=== PATIENT | female | born 1945 | race Caucasian/White ===

== ENCOUNTER 2022-12-03 09:14 | Emergency (ER) | payer MEDICARE, SELFPAY ==
--- NOTE | 2022-12-03 09:17 | ED.EYEPROB ---
HPI - Eye Problem General Chief complaint: Eye Problems Stated complaint: Eyes are red & swollen Time Seen by Provider: 12/03/22 09:16 Source: patient Mode of arrival: ambulatory Limitations: no limitations History of Present Illness HPI Narrative: Kori is a 77-year-old female patient presenting to the clinic today with complaints of eyes red and swollen x1 day. 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 States she did mow the lawn yesterday. Reports that she woke up last night multiple times with her eyes matted shut. Has redness and swelling to the lower orbits. No fever or chills. Does have yellow mucopurulent discharge coming from the eyes. Related Data Allergies Allergy/AdvReac Type Severity Reaction Status Date / Time lisinopril Allergy Mild Cough Verified 12/03/22 09:39 metformin AdvReac Mild Diarrhea Verified 12/03/22 09:39 Review of Systems Review of Systems: Pertinent positives per HPI. Patient denies any fever, chills, rash, headache, visual changes, dizziness, cough, runny nose, sore throat, shortness of breath, chest pain, palpitations, nausea, vomiting, diarrhea, constipation, abdominal pain, or any urinary issues. PMFSH Comments At the time of my signature, I reviewed and agree with the nursing past medical, surgical, social, and family history. There is no relevant family history pertinent to the patient complaint. Exam Narrative: General: Well-developed, well nourished, in no apparent distress Head: Normocephalic, atraumatic Eyes: Pupils equally round and reactive to light bilaterally, EOM intact, sclera and conjunctive injected, yellow mucopurulent discharge discharge, bilateral lid swelling with redness and erythema to the bilateral lower orbits Ears: TMs intact and clear, ear canals clear, no drainage, grossly hearing normal. Nose: Nares patent, no discharge, no inflammation, no sinus tenderness. Mouth: Oropharynx without lesions or masses, good dentition, MMM. Neck: Supple, trachea midline, no enlargement of anterior or posterior cervical nodes, no thyroid masses or goiter palpable. Cardio: Regular rate and rhythm, s1 and s2 normal, no murmur appreciated. Resp: Clear to auscultation bilaterally anteriorly and posteriorly, no rhonchi, rales, wheezing or rubs Course Course Emergency Course: Portions of this record may have been created with voice recognition software. Level of Care: Express Care Visit Vital Signs Vital signs: Vital signs reviewed MDM - Eye Problem MDM Narrative Medical decision making narrative: At the time of visit patient is resting comfortably on the exam table. Visual acuity was obtained and within normal limits with corrected eye wear. I suspect patient has periorbital cellulitis/conjunctivitis. Will place patient on Augmentin and clindamycin per up-to-date recommendations as well as giving her a 1 g Rocephin injection in the clinic today. Will also place her on tobramycin eyedrops. Supportive measures were discussed with the patient she voiced understanding discharge instructions agrees to treatment plan Differential Diagnosis Differential diagnosis: Likely corneal abrasion, conjunctivitis, acute iritis, periorbital cellulitis, subconjunctival hemorrhage, corneal ulcer and ruptured globe Discharge Plan Discharge Clinical Impression: Cellulitis of periorbital region of both eyes Conjunctivitis Qualifiers: Conjunctivitis type: acute Acute conjunctivitis type: bacterial Laterality: bilateral Qualified Code(s): H10.33 - Unspecified acute conjunctivitis, bilateral Patient Disposition: Home, Self-Care Condition: Stable Instructions: Antibiotic Form, Orbital Cellulitis (ED), Conjunctivitis (ED) Additional Instructions: Conjunctivitis is considered contagious for 24 hours while on the antibiotic. Rocephin 1 g IM given in the clinic today Take medications as prescribed-clindamycin and Augmentin May want to take a daily probiotic-
[2022-12-03 09:26] VITALS: BP 140/65; PULSE 79; RESP 16; TEMP 37.2; O2SAT 99
[2022-12-03] MEDS: cefTRIAXone 1 GM, LIDOCAINE HCL 1% LOCAL INJ 2.1 ML IM (09:56)
== END 2022-12-03 10:05 | disposition home or self-care (01) ==
LOC: EXPCOLL 09:20
PROVIDERS: Emergency Provider Nurse Practitioner Family; PCP Family Medicine
DX: L03.213 Periorbital cellulitis (principal); H10.33 Unspecified acute conjunctivitis, bilateral; E78.00 Pure hypercholesterolemia, unspecified; I10 Essential (primary) hypertension; E11.9 Type 2 diabetes mellitus without complications
CPT/HCPCS: 96372; 99213; G0463; J0696

== ENCOUNTER 2024-03-28 12:57 | Emergency (ER) | payer MEDICARE, SELFPAY ==
--- NOTE | ~2024-03-28 | XR_ITS ---
XR shoulder LT min 2V 03/28/2024 14:16 Indication: Left shoulder pain after injury Procedure: 3 views left shoulder Comparison: No prior studies for comparison. Findings: There is a comminuted mildly displaced and angulated left humeral fracture just below the h umeral neck. 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 No significant abnormality of the visualized chest. Impression: 1: Comminuted, displaced and angulated proximal humeral fracture. Reviewed, dictated and finalized at location B. Impression: 1: Comminuted, displaced and angulated proximal humeral fracture.
[2024-03-28 13:00] VITALS: BP 126/103; PULSE 75; RESP 20; TEMP 36.6; O2SAT 100
[2024-03-28 13:16] VITALS: BP 146/56; PULSE 80; RESP 18; O2SAT 100
[2024-03-28 13:31] VITALS: BP 159/76; PULSE 76; RESP 18; O2SAT 98
[2024-03-28] MEDS: MORPHINE SULFATE (*CRX) 2 MG/ML INJ IV PUSH (13:51)
[2024-03-28] MEDS: ONDANSETRON INJ 4 MG/2 ML VIAL IV PUSH (13:51)
--- NOTE | 2024-03-28 16:28 | PC.NURSE ---
pt states she is missing her belongings. pt brought in by EMS. This RN spoke with the EMS team about her missing items. State they will check for them.
[2024-03-28 16:59] LABS: Basophils Percent Auto 0.3 % (0.2-1.2); Eosinophils Absolute Auto 0.1 K/mm3 (0-0.3); Eosinophils Percent Auto 0.8 % (0-4.4); Hematocrit 32.8 % (37.0-47.0); Hemoglobin 10.9 g/dL (12.0-15.0); Immature Granulocyte Absolute 0.03 K/mm3 (0.00-0.031); Immature Granulocyte Percent A 0.4 % (0-0.5); Immature Platelet Fraction Pct 5.5 % (0.9-11.2); Lymphocytes Absolute Auto 0.52 K/mm3 (0.9-3.2); Lymphocytes Percent Auto 6.6 % (18.3-44.2); Mean Corpuscular HGB Conc 33.2 g/dl (32-36); Mean Corpuscular Hemoglobin 32.9 pg (26-34); Mean Corpuscular Volume 99.1 fl (80-100); Monocytes Absolute Auto 0.4 K/mm3 (0.1-0.6); Monocytes Percent Auto 4.5 % (2.6-8.5); Neutrophils Absolute Auto 6.8 K/mm3 (1.3-6.7); Neutrophils Percent Auto 87.4 % (45.5-73.1); Red Blood Count 3.31 M/mm3 (4.2-5.4); Red Cell Distribution Width 13.4 % (11.5-14.5); White Blood Count 7.8 K/mm3 (4.5-10.0)
--- NOTE | 2024-03-28 17:05 | ED.FALL ---
HPI - Fall General Chief Complaint: Fall Stated Complaint: L shoulder pain, fall Time Seen by Provider: 03/28/24 13:27 Source: patient Mode of arrival: ambulatory Limitations: no limitations History of Present Illness HPI Narrative: 78-year-old otherwise healthy here with the complaints of left shoulder pain. Patient states that she was in a cassidy to use the restroom missed a step and fell on her left shoulder. She denied any head and neck injuries. She states that she is unable to move the shoulder. MD complaint: fall Onset (ago): hour(s) (1) Fall from: down stairs (#) (1) Fall witnessed: no Place fall occurred: home Loss of consciousness: none Prolonged down time: no Context: tripped/slipped Location of injury: other Location of injury - extremities: Left: shoulder Related Data Home Medications Medication Instructions Recorded Confirmed atorvastatin 40 mg tablet 40 mg PO DAILY 12/03/22 12/03/22 carvedilol 25 mg tablet 25 mg PO DAILY 12/03/22 12/03/22 dulaglutide 3 mg/0.5 mL 3 mg subcut WEEKLY 12/03/22 12/03/22 subcutaneous pen injector (Trulicity) insulin glargine 100 unit/mL (3 18 unit subcut DAILY 12/03/22 12/03/22 mL) subcutaneous pen (Lantus Solostar U-100 Insulin) insulin lispro 100 unit/mL 8 unit subcut BID 12/03/22 12/03/22 subcutaneous pen (Humalog KwikPen (U-100) Insulin) losartan 100 mg tablet 100 mg PO DAILY 12/03/22 12/03/22 Allergies Allergy/AdvReac Type Severity Reaction Status Date / Time lisinopril Allergy Mild Cough Verified 03/28/24 13:42 metformin AdvReac Mild Diarrhea Verified 03/28/24 13:42 Exam Narrative: GENERAL: Well-appearing, well-nourished, and in no acute distress. HEAD: Normocephalic, atraumatic. EYES: PERRLA and EOMI. ENT: Nares clear, NECK: Supple. CHEST: Clear to auscultation. No respiratory distress. HEART: Regular rate and rhythm. No murmur heard. Normal peripheral pulses. EXTREMITIES: Normal range of motion. No edema. examination of the left shoulder marked tenderness on palpation and movement SKIN: Warm, dry, no rash. NEURO: No focal deficits. Alert and oriented x3. PSYCH: Normal mood and affect. Course Course Emergency Course: Pain is much improved after IV morphine , informed her about the x-ray findings. I discussed with recommended to transfer to trauma surgery , pt was not too happy about transfer . Discussed with Dr. Dowling accepted the pt. Vital Signs Vital signs: Vital Signs Temperature 36.6 C 03/28/24 13:00 Pulse Rate 75 03/28/24 13:00 Respiratory Rate 20 03/28/24 13:00 Blood Pressure 126/103 H 03/28/24 13:00 Pulse Oximetry 100 03/28/24 13:00 Oxygen Delivery Room Air 03/28/24 13:00 Temperature 36.6 C 03/28/24 13:00 Pulse Rate 75 03/28/24 13:00 Respiratory Rate 20 03/28/24 13:00 Blood Pressure 126/103 H 03/28/24 13:00 Pulse Oximetry 100 03/28/24 13:00 Oxygen Delivery Room Air 03/28/24 13:00 MDM - Fall MDM Narrative Medical decision making narrative: 78-year-old here with complaints of left shoulder pain after mechanical fall. She denied any head and neck injury no LOC obtain x-ray of her left shoulder control appeared with IV morphine. Differential Diagnosis Differential diagnosis: Likely dislocation of shoulder region and other (Fracture humerus) Medical Records Attestation: I reviewed the patient's medical records. Lab Data 03/28/24 16:52 03/28/24 16:52 Labs: Lab Results 03/28/24 03/28/24 Range/Units 16:52 17:20 WBC 7.8 (4.5-10.0) K/mm3 RBC 3.31 L (4.2-5.4) M/mm3 Hgb 10.9 L (12.0-15.0) g/dL Hct 32.8 L (37.0-47.0) % MCV 99.1 (80-100) fl MCH 32.9 (26-34) pg MCHC 33.2 (32-36) g/dl RDW 13.4 (11.5-14.5) % Plt Count TNP MPV TNP Immature Gran % (Auto) 0.4 (0-0.5) % Neut % (Auto) 87.4 H (45.5-73.1) % Lymph % (Auto) 6.6 L (18.3-44.2) % [place] % (Auto) 4.5 (2.6-8.5) % Eos %
[2024-03-28 17:07] LABS: Alanine Aminotransferase 26 U/L (6-35); Albumin Level 3.5 g/dL (3.5-5.1); Alkaline Phosphatase 56 U/L (38-126); Anion Gap 8 mmol/L (4-12); Aspartate Amino Transferase 28 U/L (14-36); Bilirubin,Total 0.5 mg/dL (0.2-1.3); Blood Urea Nitrogen 30 mg/dL (7-17); Calcium 8.8 mg/dL (8.4-10.2); Carbon Dioxide 26 mmol/L (22-30); Chloride 105 mmol/L (98-107); Estimated CRCL calculation 44 ml/min; Estimated Glomerular Filt Rate 40; Glucose 130 mg/dL (65-110); Sodium 139 mmol/L (137-145)
[2024-03-28 17:12] LABS: Prothrombin Time 13.4 Seconds (11.1-14.7)
[2024-03-28 17:22] LABS: Glucose Point of Care 118 mg/dl (65-105)
[2024-03-28 17:43] VITALS: BP 181/81; PULSE 77; RESP 20; O2SAT 98
[2024-03-28 17:46] VITALS: BP 183/73; PULSE 74; RESP 18; O2SAT 99
== END 2024-03-28 19:09 | disposition short-term general hospital (02) ==
PROVIDERS: Emergency Provider Family Medicine; PCP Family Medicine
DX: S42.202A Unspecified fracture of upper end of left humerus, initial encounter for closed fracture (principal); W01.0XXA Fall on same level from slipping, tripping and stumbling without subsequent striking against object, initial encounter; E11.9 Type 2 diabetes mellitus without complications; Z79.4 Long term (current) use of insulin
CPT/HCPCS: 36415; 73030; 80053; 82948; 85025; 85055; 85610; 96374; 96375; 99285; J2270; J2405

== ENCOUNTER 2025-03-14 11:06 | Emergency (ER) | payer MEDICARE, SELFPAY ==
--- NOTE | ~2025-03-14 | XR_ITS ---
EXAMINATION: XR hip LT min 2V DATE: 03/14/2025 11:48 INDICATION: Left hip pain post fall 2 weeks prior TECHNIQUE: Anteroposterior and frog-leg lateral views of the left hip were obtained. COMPARISON: None. FINDINGS: Bone alignment is normal. No fracture or osteonecrosis. Mild left hip osteoarthritis. Moderate osteoarthritis of the sacroiliac joints. Mild vascular calcifications. IMPRESSION: 1. Mild left hip and moderate bilateral sacroiliac osteoarthritis. No acute osseous abnormality. Reviewed, dictated and finalized at location A. IMPRESSION: 1. Mild left hip and moderate bilateral sacroiliac osteoarthritis. No acute oss eous abnormality.
--- NOTE | ~2025-03-14 | XR_ITS ---
EXAMINATION: XR lumbar spine 2-3V DATE: 03/14/2025 11:49 INDICATION: Bilateral low back pain 2 weeks post fall TECHNIQUE: Anteroposterior and lateral views of the lumbar spine, and cone-down lateral view of the lumbosacral junction were obtained. COMPARISON: None. FINDINGS: 3 mm retrolisthesis L2 on L3. Age-indeterminate inferior endplate compression fracture at L2 with 20% anterior vertebral body height loss minimal likely physiologic anterior wedging at T11 and T12. And moderate to severe disc height loss at L2-L3 and L5-S1, moderate disc height loss at L3-L4, mild to moderate disc height loss at L4-L5 and mild disc height loss at T10-T11 through L1-L2. Severe facet osteoarthritis at L4-L5 and L5-S1 with mild to moderate facet osteoarthritis and more cephalad lumbar spine. Atherosclerotic calcifications along the abdominal aorta, splenic and bilateral iliac arteries. Sacral arches are intact. Mild to moderate bilateral sacroiliac osteoarthritis and mild bilateral hip osteoarthritis. IMPRESSION: 1. Age-indeterminate, potentially acute or subacute L2 inferior endplate compression fracture. 2. Moderate to severe lower lumbar predominant spondylosis. Reviewed, dictated and finalized at location A. IMPRESSION: 1. Age-indeterminate, potentially acute or subacute L2 inferior endplate compre ssion fracture. 2. Moderate to severe lower lumbar predominant spondylosis.
--- NOTE | 2025-03-14 11:11 | ED_ITS ---
HPI - Back Pain/Injury General Chief Complaint: Back Pain/Injury Stated Complaint: back/leg pain Time Seen by Provider: 03/14/25 11:07 Source: patient Mode of arrival: ambulatory Limitations: no limitations History of Present Illness HPI Narrative: Patient is a 79-year-old female who presents with 2 weeks of low back pain with pain radiating down the left leg. Patient states she was bent down pulling weeds and fell over to her side. Reports pain was very minor initially but has worsened over time. Reports pain does chew from her back all the way down to her left foot. Denies any weakness, numbness or tingling. Patient goes to a chiropractor and he is requesting images, had similar issues starting in November and has been seeing him twice a week since. Patient was doing better prior to fall and was on a maintenance program. Patient does have diabetes and called her health information technologist. States he informed her that she could take a short course of steroids and monitor sugars closely. Patient denies any bowel or bladder incontinence. Related Data Home Medications ?Medication ?Instructions ?Recorded ?Confirmed ?Last Taken ?Type atorvastatin 40 mg tablet 40 mg PO DAILY 12/03/2211/13 Unknown History carvedilol 25 mg tablet 25 mg PO DAILY 12/03/2211/13 Unknown History dulaglutide 3 mg/0.5 mL 3 mg subcut WEEKLY 12/03/22 12/03/22 Unknown History subcutaneous pen injector (Trulicity) losartan 100 mg tablet 100 mg PO DAILY 12/03/22 Unknown History allopurinol 300 mg tablet mg 03/14/25 Unknown History glipizide 10 mg tablet mg 03/14/25 Unknown History insulin aspart U-100 100 unit/mL subcut 03/14/25 Unkn own History (3 mL) subcutaneous pen (Novolog FlexPen U-100 Insulin aspart) Allergies Allergy/AdvReac Type Severity Reaction Status Date / Time lisinopril Allergy Mild Cough Verified 03/14/25 11:08 metformin AdvReac Mild Diarrhea Verified 03/14/25 11:08 Review of Systems Review of Systems: All systems reviewed & are unremarkable except as noted in HPI and below Constitutional: Constitutional: Denies body ache(s), Denies chills, Denies fatigue, Denies fever(s), Denies headache(s), Denies malaise and Denies weakness Eyes: Eyes: Denies blurry vision, Denies irritation and Denies loss of vision ENT: Denies otalgia, Denies headache(s), Denies nasal discharge, Denies sinus pain and Denies sore throat Cardiovascular: Cardiovascular: Denies chest pain, Denies irregular heart rhythm and Denies dyspnea Respiratory: Respiratory: Denies dyspnea Gastrointestinal: Gastrointestinal: Denies abdominal pain, Denies melena, Denies hematochezia, Denies diarrhea, Denies nausea and Denies vomiting Musculoskeletal: Musculoskeletal: Reports back pain, Denies myalgias and Denies arthralgias Integumentary/Breasts: Skin/Breast: Denies pruritus and Denies rash Neurologic: Denies headache(s), Denies loss of vision and Denies weakness Psychiatric: Psychiatric: Reports no additional psychiatric complaints Endocrine: Endocrine: Denies fatigue PMFSH Comments At time of signature, agree with nursing past medical, surgical, social and family history. There is no relevant family history pertinent to the presenting complaint. Exam Const: General: cooperative, healthy appearing, comfortable, no acute distress and well nourished Nutritional Appearance: well nourished Orientation/consciousness: patient oriented x3 Limitations: no limitations HENMT: Head: normal to inspection, normocephalic and atraumatic Ears: hearing grossly normal bilaterally and external ears normal Face/Nose/Sinus: Normal external nose present, normal facial exam and face symmetric Face and sinus: normal facial exam and face symmetric Mouth: Yes lip normal Eyes: General: appearance normal, both eyes and all related structures Alignment and Position: alignment normal and position normal Periorbital: periorbital findings normal Eyelids: eyelids normal Pupils: Equal, round and reactive pupils present EOM: EOMs intact bilaterally Neck: Neck: normal visual inspection, full ROM and supple Chest: Chest palpation & inspection: normal inspection of the chest Resp: Effort & Inspection: normal respiratory effort and able to speak in complete sentences Auscultation: clear to auscultation bilaterally Cardio: Rate: regular rate Rhythm: regular rhythm Heart sounds: S1 normal heart sound present and S2 normal heart sound present GI: Inspection: normal to inspection Back/Spine/Pelvis: Thoracic/Lumbar Spine: thoracic and lumbar spine normal to inspection, thoraco-lumbar ROM normal, No paraspinal muscle tenderness, No thoracic spinal tenderness and No lumbar spinal tenderness Pelvis: sciatic notch tenderness on the left Sacroiliac joints: on the left tender to palpation Skin: General skin exam: normal color and no rashes or lesions noted Neuro: General: patient oriented x3 and moves all extremities Cranial nerves: Yes Equal, round and reactive pupils present Speech: normal speech Gait exam (Neuro): Normal gait present Extrem: General: normal to inspection, full ROM and no edema Psych: Appearance: grossly normal and well kempt Mental Status: mental status grossly normal Speech and movement: Normal speech and movement present Affect: normal affect Attitude: cooperative Thought process: Normal thought process present Course Course Emergency Course: Patient is aware of diagnosis, understands and agrees to treatment plan. Anticipatory guidance given. Patient agrees to follow-up as directed and is aware of reasons to seek care at the emergency department. Portions of this record may have been created with voice recognition software Level of Care: Express Care Visit Vital Signs Vital signs: Vital Signs Temperature 37.1 C 03/14/25 11:19 Pulse Rate 102 H 03/14/25 11:19 Respiratory Rate 18 03/14/25 11:19 Blood Pressure 127/91 H 03/14/25 11:19 Pulse Oximetry 98 03/14/25 11:19 Oxygen Delivery Room Air 03/14/25 11:19 Temperature 37.1 C 03/14/25 11:19 Pulse Rate 102 H 03/14/25 11:19 Respiratory Rate 18 03/14/25 11:19 Blood Pressure 127/91 H 03/14/25 11:19 Pulse Oximetry 98 03/14/25 11:19 Oxygen Delivery Room Air 03/14/25 11:19 Reviewed MDM - Back Pain/Injury MDM Narrative Medical decision making narrative: No risk factors or findings concerning for epidural abscess, diskitis, vertebral osteomyelitis, cord compression, cauda equina, vertebral fracture or bone malignancy, AAA, or pyelonephritis. Patient instructed to consider further imaging and workup through their primary care physician as an outpatient if symptoms persist. Pt well hydrated appearing, in no respiratory distress, hemodynamically stable. Recommend supportive care. The patient is stable at time of discharge the clinical impression was discussed and the patient was given the opportunity to ask questions, which were addressed as completely as possible given the information available at present. Anticipatory guidance and return to care precautions were discussed and the importance of primary care follow-up was stressed and encouraged. The patient voiced understanding of the plan, indications to return, and the need for follow-up. Exam findings show no acute concerns or changes Patient is appropriate for outpatient treatment and follow-up. Differential Diagnosis Differential diagnosis: Likely lumbar radiculopathy, sciatica and strain of lumbar region Medical Records Attestation: I reviewed the patient's medical records. Imaging Data Radiologist's impression: EXAMINATION: XR lumbar spine 2-3V DATE: 03/14/2025 11:49 INDICATION: Bilateral low back pain 2 weeks post fall TECHNIQUE: Anteroposterior and lateral views of the lumbar spine, and cone-down lateral view of the lumbosacral junction were obtained. COMPARISON: None. FINDINGS: 3 mm retrolisthesis L2 on L3. Age-indeterminate inferior endplate compression fracture at L2 with 20% anterior vertebral body height loss minimal likely physiologic anterior wedging at T11 and T12. And moderate to severe disc height loss at L2-L3 and L5-S1, moderate disc height loss at L3-L4, mild to moderate disc height loss at L4-L5 and mild disc height loss at T10-T11 through L1-L2. Severe facet osteoarthritis at L4-L5 and L5-S1 with mild to moderate facet osteoarthritis and more cephalad lumbar spine. Atherosclerotic calcifications along the abdominal aorta, splenic and bilateral iliac arteries. Sacral arches are intact. Mild to moderate bilateral sacroiliac osteoarthritis and mild bilateral hip osteoarthritis. IMPRESSION: 1. Age-indeterminate, potentially acute or subacute L2 inferior endplate compression fracture. 2. Moderate to severe lower lumbar predominant spondylosis. Reviewed, dictated and finalized at location A. EXAMINATION: XR hip LT min 2V DATE: 03/14/2025 11:48 INDICATION: Left hip pain post fall 2 weeks prior TECHNIQUE: Anteroposterior and frog-leg lateral views of the left hip were obtained. COMPARISON: None. FINDINGS: Bone alignment is normal. No fracture or osteonecrosis. Mild left hip osteoarthritis. Moderate osteoarthritis of the sacroiliac joints. Mild vascular calcifications. IMPRESSION: 1. Mild left hip and moderate bilateral sacroiliac osteoarthritis. No acute osseous abnormality. Reviewed, dictated and finalized at location A. Discharge Plan Discharge Clinical Impression: Sciatica Qualifiers: Laterality: left Qualified Code(s): M54.32 - Sciatica, left side Patient Disposition: Home Condition: Stable Instructions: Sciatica (ED) Additional Instructions: Take steroids per package instructions, take muscle relaxers every 8 hours as needed for muscle spasm. do not drive or make any important decisions while on this medication for it can make you drowsy Exercise:Combine aerobic exercise, like walking or swimming, with specific exercises to keep the muscles in your back and abdomen strong and flexible.bed rest is not recommended. Proper Lifting:Be sure to lift heavy items with your legs, not your back. Do not bend over to pick something up. Keep your back straight and bend at your knees. Weight:Maintain a healthy weight. Being overweight puts added stress on your lower back. Avoid Smoking:Both the smoke and the nicotine cause your spine to age faster than normal. Proper Posture:Good posture is important for avoiding future problems. A therapist can teach you how to safely stand, sit, and lift. Use warm moist heat or ice to help with pain. Follow up with Primary provider in 2-3 days, This may become a chronic condition and they will be the one to help manage your pain and order additional testing. Follow-up with your doctor for further care and evaluation or seek ER if you develop problems with bladder/bowel function, weakness or loss of feeling in one or both of your legs. Patient Language: Israeli Prescriptions: New methocarbamol 750 mg tablet 1,500 mg PO TID 5 Days Qty: 30 0RF methylprednisolone [Medrol (Ankit)] 4 mg tablets,dose pack See Rx Instructions .ROUTE .COMPLEX Qty: 21 0RF Rx Instructions: orally per package directions No Action glipizide 10 mg tablet allopurinol 300 mg tablet insulin aspart U-100 [Novolog FlexPen U-100 Insulin] 100 unit/mL (3 mL) insulin pen SUBCUT atorvastatin 40 mg tablet 40 mg PO DAILY carvedilol 25 mg tablet 25 mg PO DAILY losartan 100 mg tablet 100 mg PO DAILY Trulicity 3 mg/0.5 mL pen injector 3 mg SUBCUT WEEKLY Follow-up/Referrals: Sin,Domenic Del Rio MD [Primary Care Provider, Internal Medicine] - 3 Days Time of Disposition: 12:23
[2025-03-14 11:19] VITALS: BP 127/91; PULSE 102; RESP 18; TEMP 37.1; O2SAT 98
== END 2025-03-14 12:25 | disposition home or self-care (01) ==
PROVIDERS: Emergency Provider Nurse Practitioner Family; PCP Family Medicine
DX: M54.32 Sciatica, left side (principal); E11.9 Type 2 diabetes mellitus without complications; Z79.4 Long term (current) use of insulin; Z79.84 Long term (current) use of oral hypoglycemic drugs; Z79.85 Long-term (current) use of injectable non-insulin antidiabetic drugs; I10 Essential (primary) hypertension; E78.00 Pure hypercholesterolemia, unspecified; Z96.652 Presence of left artificial knee joint
CPT/HCPCS: 72100; 73502; 99214; G0463